=== PATIENT | female | born 1970 | race Caucasian/White ===

== ENCOUNTER 2017-06-07 23:45 | Emergency (ER) | payer OTHER ==
[~2017-06-07] VITALS: Ht 167.6 cm; Wt 98.9 kg
[~2017-06-07 23:45] MED LIST: HYDACE5 PO; PROM25 PO
[2017-06-08] MEDS ORDERED: Prednisone20 MG PO (01:49)
[2017-06-08] MEDS ORDERED: Percocet 5-3251 EACH PO (01:49)
== END 2017-06-08 02:04 | disposition home or self-care (01) ==
LOC: ER 23:45
DX: M54.32 Sciatica, left side (principal); F17.210 Nicotine dependence, cigarettes, uncomplicated; Z79.891 Long term (current) use of opiate analgesic
CPT/HCPCS: 99283

== ENCOUNTER → 2020-03-15 | Outpatient (CLI) | payer OTHER ==
[~2020-03-15] MED LIST changes: +Percocet 5-3251 EACH PO; +Prednisone20 MG PO
== END ==
LOC: LAB QU 10:59
DX: R00.2 Palpitations (principal)
CPT/HCPCS: 83880; 84484